=== PATIENT | female | born 1940 | race Caucasian/White ===

== ENCOUNTER → 2020-04-04 | Outpatient (CLI) | payer MEDICARE, BC ==
--- NOTE | 2020-04-04 10:55 | Diagnostic Imaging Report ---
CT BRAIN WO HISTORY: Trauma COMPARISON: None. Technique: Noncontrast axial scans were obtained from skull base to the vertex. Coronal and sagittal reconstructions obtained from the axial data. One or more of the following dose reduction techniques were used: Automated exposure control, adjustment of the mA and/or kV according to patient size, and/or utilization of iterative reconstruction technique. DISCUSSION: Scalp/Skull: Unremarkable. Brain sulci: Mildly prominent. Ventricles: Compensatory dilatation. Extra-axial spaces: No masses or fluid collections. Carotid siphon calcifications are present. Parenchyma: Mild bilateral deep white matter hypodensity is likely chronic microvascular ischemic change. Otherwise, no masses, hemorrhage, or large vascular territory acute infarct. Dural sinuses: No abnormal densities. Sellar/Suprasellar region: Intact. Skull base: Intact. Incidental findings: Bilateral ocular lens replacement. IMPRESSION: 1. No acute intracranial abnormalities. 2. Mild supratentorial chronic microvascular ischemic change. Mild generalized cerebral volume loss. Signed by: Dr. Yosef Moody M.D. on 04/04/2020 10:51 AM
--- NOTE | 2020-04-04 11:04 | Diagnostic Imaging Report ---
Left knee, 3 views INDICATION: ^[id number] ^[id number] ^STATUS POST FALL Comparison: None available. Discussion: Multiple views of the left knee are negative for grossly displaced fracture or dislocation. There is severe joint space narrowing with large osteophytes of the patellofemoral and medial joint compartments. Question early trace periarticular sclerosis within the medial compartment. Probable chondrocalcinosis is noted within the lateral compartment. Negative for suprapatellar joint effusion. Trace basilar calcifications are noted posteriorly. IMPRESSION: 1. Severe degenerative changes of the left knee. 2. Negative for acute displaced fracture, dislocation or large suprapatellar joint effusion. Signed by: Avery Fonseca MD on 04/04/2020 11:01 AM
--- NOTE | 2020-04-04 11:32 | Diagnostic Imaging Report ---
EXAMINATION: 1. Lumbar spine, 2 views 2. Thoracic spine, 2 views INDICATION: ^[id number] ^0 ^STATUS POST FALL Comparison: None available. Discussion: Evaluation is limited due to diffuse demineralization and patient inability to properly position for the examination. The superior aspect of the thoracic spine is not well assessed on lateral view. There is multilevel advanced degenerative changes noted throughout the lumbar spine and mid to lower thoracic spine. No definite severe compression deformity is identified. Negative for dislocation. Slight S shaped curvature of the spine is noted. SI joints are patent. Sacrum is excluded by overlying bowel gas. Visualized lung parenchyma is clear. IMPRESSION: Very limited evaluation due to diffuse demineralization and inability to properly position the patient. No definite displaced fracture deformity or severe compression deformity is noted. Severe degenerative changes are noted throughout the spine, most prominent at the lower lumbar spine. Consider follow-up CT for further evaluation if there is concern for acute pathology. Signed by: Avery Fonseca MD on 04/04/2020 11:29 AM
--- NOTE | 2020-04-04 13:47 | Diagnostic Imaging Report ---
CT THORACIC SPINE WO HISTORY: Fall COMPARISON: Thoracic spine radiographs 04/04/2020 TECHNIQUE: Axial CT images of the thoracic spine were obtained without intravenous contrast. Coronal/sagittal reformations were created. One or more of the following dose reduction techniques were used: Automated exposure control, adjustment of the mA and/or kV according to patient size, and/or utilization of iterative reconstruction technique. FINDINGS: Thoracic kyphosis is preserved. There is no significant subluxation. Mild thoracic dextroscoliosis is present. Mild bone demineralization limits evaluation. No definite acute fracture or compression deformity is seen. Mild, overall corticated compression deformity of the T12 vertebral body is favored to be chronic; there is no significant retropulsion. No gross spinal canal mass is seen. The paravertebral and paraspinal soft tissues are unremarkable. Mild to moderate multilevel spondylotic changes are most prominent in the lower thoracic spine. There is no gross canal or foraminal stenosis. There is mild scarring in the lung apices. Mild bibasilar atelectasis is present as well. Aortic and coronary artery calcifications are present. IMPRESSION: 1. No acute osseous abnormalities. 2. Likely chronic mild T12 vertebral compression fracture without significant retropulsion. 3. Mild to moderate multilevel spondylosis, most prominent in the lower thoracic spine. Signed by: Dr. Yosef Moody M.D. on 04/04/2020 1:44 PM
--- NOTE | 2020-04-04 13:56 | Diagnostic Imaging Report ---
CT LUMBAR SPINE WO HISTORY: Fall COMPARISON: Concurrent lumbar spine radiographs and thoracic spine CT TECHNIQUE: Axial CT images of the lumbar spine were obtained without contrast. Coronal and sagittal reconstructions obtained from the axial data. One or more of the following dose reduction techniques were used: Automated exposure control, adjustment of the mA and/or kV according to patient size, and/or utilization of iterative reconstruction technique. DISCUSSION: There are 5 nonrib-bearing lumbar vertebral bodies. Lumbar lordosis is preserved. Mild lumbar levoscoliosis is present. Mild bone demineralization limits evaluation. No definite acute fracture or compression deformity is seen in the lumbar spine. No gross spinal canal mass is seen. Mild lower lumbar paraspinal muscle atrophy is present. Otherwise, the paravertebral and paraspinal soft tissues are unremarkable. Degenerative changes: Moderate multilevel spondylosis is most prominent at L5-S1. Mild bilateral sacroiliac degenerative changes are present as well. T12-L1: Possible mild canal stenosis due to posterior disc osteophyte complex. Mild to moderate bilateral foraminal stenoses due to disc osteophyte complex and facet arthrosis. L1-L2: No gross canal or foraminal stenosis. L2-L3: No gross canal or foraminal stenosis. L3-L4: At least mild canal stenosis due to disc bulge and ligamentum flavum thickening. Mild bilateral foraminal stenoses due to disc bulge and facet arthrosis. L4-L5: Grade 1 anterolisthesis of L4 and L5 due to advanced bilateral L4-L5 facet arthrosis. At least moderate canal stenosis due to uncovered disc bulge and ligamentum flavum thickening. Mild to moderate right and mild left foraminal stenoses due to uncovered disc bulge and facet arthrosis. L5-S1: Grade 1 anterolisthesis of L5 on S1 due to advanced bilateral L5-S1 facet arthrosis. At least mild to moderate canal stenosis due to uncovered disc bulge and ligamentum flavum thickening. Mild to moderate bilateral foraminal stenoses due to uncovered disc bulge and facet arthrosis. Additional findings: Diffuse scattered calcified atherosclerosis is present. Sigmoid colon diverticulosis is partially imaged. IMPRESSION: 1. No acute osseous abnormalities in the lumbar spine. 2. Degenerative changes as described above. Signed by: Dr. Yosef Moody M.D. on 04/04/2020 1:53 PM
== END ==
LOC: CT 09:38
PROVIDERS: ATTEND Emergency Medicine
DX: M54.6 Pain in thoracic spine (principal); S00.83XA Contusion of other part of head, initial encounter; M25.562 Pain in left knee; M54.5 Low back pain; W19.XXXA Unspecified fall, initial encounter; Z91.89 Other specified personal risk factors, not elsewhere classified
CPT/HCPCS: 70450; 72070; 72100; 72128; 72131